=== PATIENT | male | born 1990 ===

== ENCOUNTER 2018-07-31 11:53 | Outpatient (CLI) | payer OTHER | END 2018-07-31 15:00 | disposition home or self-care (01) | LOC: RAD 11:53 | DX: M54.2 Cervicalgia (principal); M25.512 Pain in left shoulder ==

== ENCOUNTER → 2020-11-12 | Outpatient (CLI) | payer OTHER | END | disposition home or self-care (01) | LOC: OFIC 805 13:30 | PROVIDERS: ATTEND Otolaryngology | DX: L30.8 Other specified dermatitis (principal); G47.33 Obstructive sleep apnea (adult) (pediatric) ==